=== PATIENT | female | born 1960 | race Caucasian/White ===

== ENCOUNTER 2018-02-14 14:49 | Outpatient (CLI) | payer BC | END 2018-02-14 14:50 | disposition home or self-care (01) | LOC: BICMAMMO 14:49 | PROVIDERS: ATTEND Obstetrics & Gynecology | DX: Z12.31 Encounter for screening mammogram for malignant neoplasm of breast (principal); R92.1 Mammographic calcification found on diagnostic imaging of breast; Z98.82 Breast implant status | CPT/HCPCS: 77063; 77067 ==

== ENCOUNTER 2020-03-04 14:44 | Outpatient (CLI) | payer BC ==
--- NOTE | 2020-03-04 16:16 | BD ---
Exam: DEXA Bone Density 03/04/20 HISTORY: Postmenopausal screening for osteoporosis. FINDINGS: Lumbar Spine: BMD (g/cm2) T-SCORE Z-SCORE L1 0.838 -1.4 -0.3 L2 0.894 -1.2 0.0 L3 0.861 -2.0 -0.8 L4 0.872 -1.7 -0.4 L1-L4 0.866 -1.6 -0.4 Femoral Neck: 0.720 -1.2 0.0 Total Femur: 0.948 0.0 0.8 The ten year fracture risk for a major osteoporotic fracture is 6.4% and for hip fracture is 0.4%. Impression: Osteopenia. POS: [facility]
== END 2020-03-04 14:45 | disposition home or self-care (01) ==
LOC: BICMAMMO 14:44
PROVIDERS: ATTEND Obstetrics & Gynecology
DX: Z13.820 Encounter for screening for osteoporosis (principal); M85.89 Other specified disorders of bone density and structure, multiple sites
CPT/HCPCS: 77080

== ENCOUNTER 2025-08-09 11:23 | Outpatient (CLI) | payer BC | END 2025-08-09 11:24 | disposition home or self-care (01) | LOC: SCSBT 11:23 | PROVIDERS: ATTEND Obstetrics & Gynecology | DX: Z13.820 Encounter for screening for osteoporosis (principal); M85.89 Other specified disorders of bone density and structure, multiple sites | CPT/HCPCS: 77080 ==